=== PATIENT | male | born 1970 | race Caucasian/White ===

== ENCOUNTER 2021-09-17 12:47 | Emergency (ER) | payer OTHER ==
[~2021-09-17] VITALS: Ht 182.8 cm; Wt 95.3 kg
[2021-09-17] MEDS ORDERED: CYCLOBENZAPRINE10 MG PO (14:20)
[2021-09-17] MEDS ORDERED: TYLENOL325 M1 PO (14:20)
== END 2021-09-17 14:39 | disposition home or self-care (01) ==
LOC: ED 12:47
DX: S13.4XXA Sprain of ligaments of cervical spine, initial encounter (principal); I25.10 Atherosclerotic heart disease of native coronary artery without angina pectoris; Z95.5 Presence of coronary angioplasty implant and graft; V49.88XA Car occupant (driver) (passenger) injured in other specified transport accidents, initial encounter; Y93.89 Activity, other specified; Y92.413 State road as the place of occurrence of the external cause; Y99.9 Unspecified external cause status